=== PATIENT | male | born 1990 | race Hispanic/Latino ===

== ENCOUNTER 2017-06-14 12:12 | Emergency (ER) | payer SELFPAY ==
[2017-06-14 12:56] VITALS: BP 119/73
[2017-06-14 13:27] LABS: Basophils % (Auto) 0.6 % (0.0-1.8); Eosinophils % (Auto) 0.1 % (0.0-4.3); Hematocrit 48.7 % (35.5-45.6); Hemoglobin 17.2 gm/dl (11.8-15.2); Lymphocytes # (Auto) 2.5 K/mm3 (1.2-5.4); Lymphocytes % (Auto) 31.1 % (13.4-35.0); Mean Corpuscular HGB Conc 35 % (32-34); Mean Corpuscular Hemoglobin 33 pg (28-32); Mean Corpuscular Volume 94 fl (84-94); Monocytes # (Auto) 0.9 K/mm3 (0.0-0.8); Monocytes % (Auto) 11.3 % (0.0-7.3); Platelet Count 283 K/mm3 (140-440); Red Blood Count 5.19 M/mm3 (3.65-5.03); Red Cell Distribution Width 13.3 % (13.2-15.2)
[2017-06-14 13:49] LABS: Alanine Aminotransferase 35 units/L (7-56); Albumin 4.4 g/dL (3.9-5); BUN/Creatinine Ratio 14; Blood Urea Nitrogen 10 mg/dL (9-20); Calcium 9.2 mg/dL (8.4-10.2); Hemolysis Index 8
--- NOTE | 2017-06-14 13:59 | XRay Report ---
ROUTINE CHEST, TWO VIEWS: HISTORY: Cough. The trachea, heart, mediastinal contour, lung prakash and bony thorax are unremarkable. IMPRESSION: Unremarkable chest x-ray.
== END 2017-06-14 21:10 | disposition left against medical advice (07) ==
LOC: ED 12:12
DX: R50.9 Fever, unspecified (principal); Z53.21 Procedure and treatment not carried out due to patient leaving prior to being seen by health care provider
CPT/HCPCS: 36415; 71046; 80053; 85025

== ENCOUNTER 2017-11-21 16:59 | Emergency (ER) | payer SELFPAY ==
[2017-11-21 17:07] VITALS: BP 122/85
[2017-11-21 18:06] LABS: Bilirubin,Urine NEG (Negative); Blood,Urine NEG (Negative); Color,Urine Yellow (Yellow); Protein,Urine <15 mg/dL mg/dL (Negative); WBC,Urine < 1.0 /HPF (0.0-6.0)
--- NOTE | 2017-11-21 18:08 | Emergency Department Report ---
Blank Doc - Documentation Documentation: 27-year-old male with a past medical history HIV with undetectable viral load or CD4 count 1800's, previous inguinal hernia repair, and kidney stones that passed without lithotripsy presents to the hospital complaining of right back pain, suprapubic discomfort, left lower quadrant discomfort times one month. Pain is intermittent. Patient's having pressure in his bladder with urination and some dysuria. Pt also complaining of constipation and abdominal bloating but he did have a good bowel movement yesterday. No complaints of nausea, vomiting, fever, or hematuria. ua neg ct a/p noncontrast ordered Pt states he didn't have n/v with last kidney stone midlevel to follow pt took advil today and denies offer for additional med at this time
--- NOTE | 2017-11-21 21:20 | Emergency Department Report ---
ED Abdominal Pain HPI - General Chief Complaint: Urogenital-Male Stated Complaint: BACK AND ABDOMINAL PAIN Time Seen by Provider: 11/21/17 17:56 Source: patient Mode of arrival: Ambulatory Limitations: No Limitations - History of Present Illness Initial Comments: 27-year-old male presents with suprapubic discomfort radiating to right back for 1 month. Past medical history HIV, previous inguinal hernia repair, and kidney stones that passed without lithotripsy. Patient reports these symptoms are different from last presentation and kidney stones. Patient reports having frequency and urgency with constipation. He did have a bowel movement yesterday but continues to feel bloated. Pain is intermittent. He is also complaining of pressure in bladder with urination with dysuria. He has taken Advil for symptom relief but pain returns intermittently. No complaints of nausea, vomiting, fever, or hematuria. MD Complaint: abdominal pain -: month(s) (1 month) Location: suprapubic Radiation: bilateral flank Migration to: no migration Severity: mild Severity scale (0 -10): 3 Quality: cramping, sharp Consistency: intermittent Improves With: nothing Worsens With: nothing Associated Symptoms: constipation, dysuria. denies: nausea, vomiting, diarrhea , fever, chills, hematemesis, hematochezia, melena, hematuria, anorexia, syncope Treatments Prior to Arrival: NSAIDs - Related Data Allergies Allergy/AdvReac Type Severity Reaction Status Date / Time No Known Allergies Allergy Unverified 06/14/17 12:52 ED Review of Systems ROS: Stated complaint: BACK AND ABDOMINAL PAIN Other details as noted in HPI Constitutional: denies: chills, fever Respiratory: denies: cough, shortness of breath, wheezing Cardiovascular: denies: chest pain, palpitations Gastrointestinal: abdominal pain (suprapubic pain), constipation. denies: nausea, vomiting, diarrhea, hematemesis, melena Genitourinary: urgency, frequency. denies: dysuria, hematuria, discharge, testicular pain, testicular mass Musculoskeletal: back pain (bilateral flank pain). denies: joint swelling, arthralgia Neurological: denies: headache, weakness, paresthesias Psychiatric: denies: anxiety, depression ED Past Medical Hx - Past Medical History Hx HIV: Yes (undetectable) - Surgical History Additional Surgical History: inguinal hernia repair, tonsillectomy, wisdom teeth - Social History Smoking Status: Never Smoker Substance Use Type: None ED Physical Exam - General Limitations: No Limitations General appearance: alert, in no apparent distress - Respiratory Respiratory exam: Present: normal lung sounds bilaterally. Absent: respiratory distress - Cardiovascular Cardiovascular Exam: Present: regular rate, normal rhythm. Absent: systolic murmur, diastolic murmur, rubs, gallop - GI/Abdominal GI/Abdominal exam: Present: soft, tenderness (right lower quadrant and left lower quadrant), normal bowel sounds. Absent: distended, guarding, rebound, rigid, organomegaly, mass - Back Exam Back exam: Present: normal inspection, full ROM. Absent: CVA tenderness (R), CVA tenderness (L), rash noted - Neurological Exam Neurological exam: Present: alert, oriented X3, normal gait - Psychiatric Psychiatric exam: Present: normal affect, normal mood - Skin Skin exam: Present: warm, dry, intact, normal color. Absent: rash ED Course Vital Signs 11/21/17 17:03 Temperature 97.9 F Pulse Rate 68 Respiratory 16 Rate Blood Pressure 122/85 O2 Sat by Pulse 99 Oximetry ED Medical Decision Making - Radiology Data Radiology results: report reviewed EXAM: CT ABDOMEN PELVIS WO CON HISTORY: LLQ tenderness TECHNIQUE: CT abdomen and pelvis without contrast PRIORS: None. FINDINGS: No acute abnormality identified in the lung bases. No focal abnormality identified within the liver parenchyma. The spleen demonstrates normal size and attenuation. No pancreatic abnormalities seen. Kidneys demonstrate no evidence of hydronephrosis or nephrolithiasis. No ureteral calculus identified. The adrenal glands are unremarkable. Abdominal aorta is normal in caliber. No pathologically enlarged lymph nodes are identified. No signs of free fluid or free air No evidence of small bowel dilatation. The appendix is identified and is normal in size no adjacent inflammatory change seen. Urinary bladder is unremarkable. IMPRESSION: Negative. No acute abnormalities seen - Medical Decision Making This is a 27 y.o. male who presents with suprapubic and low back pain for 1 month intermittently. Patient was examined by me. Vitals normal. Patient stable and in no acute distress. Obtained UA and CT of abdomen and pelvic. Urinalysis CT of abdomen is normal. Discussed results and ER plan with patient. Patient agreed to ER plan care plan. Discharged home. Instructed to increase fluid and fiber intake. Referrals to [facility] for follow -up. Critical care attestation.: If time is entered above; I have spent that time in minutes in the direct care of this critically ill patient, excluding procedure time. ED Disposition Clinical Impression: Lower abdominal pain Low back pain Qualifiers: Chronicity: acute Back pain laterality: bilateral Sciatica presence: without sciatica Qualified Code(s): M54.5 - Low back pain Disposition: TO HOME OR SELFCARE Is pt being admited?: No Does the pt Need Aspirin: No Condition: Stable Instructions: Acute Low Back Pain (ED), Abdominal Pain (ED) Additional Instructions: Increase fiber intake with foods and/or metamucil. Increase water intake and drink or eat prunes. Take colace daily to soften stool. Follow up with primary care provider in 24-72 hours. Referrals: [facility] [Outside] - 3-[address] [facility] [Outside] - 3-5 Days [facility] [Outside] - 3-5 Days Time of Disposition: 21:50 Print Language: CROATIAN
== END 2017-11-21 21:50 | disposition home or self-care (01) ==
LOC: ED 16:59
DX: R10.30 Lower abdominal pain, unspecified (principal); M54.5 Low back pain; R30.0 Dysuria
CPT/HCPCS: 74176; 81001